=== PATIENT | male | born 1950 | race Caucasian/White ===

== ENCOUNTER 2017-04-19 04:33 | Emergency (ER) | payer MEDICARE, OTHER ==
[2017-04-19 04:44] VITALS: BP 158/75
[2017-04-19] MEDS ORDERED: METHYLPREDNISOLONE SOD SUCC/PF 125 MG/2 ML VIAL IM ONE (05:09)
[2017-04-19] MEDS ORDERED: diphenhydrAMINE HCL 25 MG CAPSULE PO ONE (05:09)
[2017-04-19] MEDS ORDERED: METHYLPREDNISOLONE SOD SUCC/PF 125 MG/2 ML VIAL ONE (05:10)
[2017-04-19] MEDS ORDERED: diphenhydrAMINE HCL 50 MG/ML VIAL ONE (05:10)
[2017-04-19] MEDS ORDERED: diphenhydrAMINE HCL 25 MG CAPSULE ONE ×2 (05:12→05:13)
--- NOTE | 2017-04-19 05:15 | ERNOTE ---
Integumentary HPI - Narrative Date of Service: 04/19/17 - General Time Seen by Provider: 04/19/17 05:04 - Immun/Allergies/Home Medications Immunizations: IMMUNIZATION HX Immunizations Up to Date Yes History of Influenza Vaccine Yes Hx Pneumococcal Vaccination Yes Allergies/Adverse Reactions: Allergies Allergy/AdvReac Type Severity Reaction Status Date / Time aspirin Allergy Verified 04/19/17 04:38 Home Medications: HOME MEDICATIONS Atenolol [Tenormin] 12.5 mg PO DAILY 04/19/17 [Last Taken Unknown] Lisinopril [Zestril] 5 mg PO DAILY 04/19/17 [Last Taken Unknown] Simvastatin 10 mg PO DAILY 04/19/17 [Last Taken Unknown] glipiZIDE [Glipizide] 10 mg PO DAILY 04/19/17 [Last Taken Unknown] metFORMIN HCL [Glucophage] 1,000 mg PO BIDWM 04/19/17 [Last Taken Unknown] - History of Present Illness Narrative: This is a 66-year-old gentleman who presents to the emergency department at 5 AM complaining of an itchy rash on the inside of both calves. The rash has been present for 7 days. It is been keeping him up at night. He has been using calamine lotion without much success. Last night he finally became very frustrated and decided to come the emergency Department. The patient states that it started shortly after he was golfing. He thinks he walked through some poison deniz. Says the rash started out as small areas and have gradually become larger. He denies rash anywhere else on his body. He denies previous history of rash. He has no other complaints. Review of Systems - Review of Systems Constitutional: Present: no symptoms reported EYE: Present: no symptoms reported ENT: Present: no symptoms reported Respiratory: Present: no symptoms reported Cardiology: Present: no symptoms reported Gastrointestinal/Abdominal: Present: no symptoms reported Genitourinary: Present: no symptoms reported Musculoskeletal: Present: no symptoms reported Skin: Present: See HPI, rash Neurological: Present: no symptoms reported Endocrine: Present: no symptoms reported Hematologic/Lymphatic: Present: no symptoms reported Psych: Present: no symptoms reported All Other Systems: All systems neg except as marked - Patient's Past Medical History Patient History - Medical: Diabetes Type 2 Patient History - Cardiac/Respiratory: Asthma Patient History - Cancer: No Hx of Cancer Patient History - Surgical Procedures: Other Patient History - Other: None - Social History Living Situations: assisted living Psych History: No pertinent hx Smoking Status: Never smoker Alcohol Use: none Drug Use: none - Immunizations Immunizations Up to Date: Yes Hx Pneumococcal Vaccination: Yes History of Influenza Vaccine: Yes Physical Exam - Physical Exam General Appearance: Present: wd/wn, alert, no apparent distress Head Exam: Present: normal inspection, no evidence of injury Ears, Nose, Throat: Present: normal ENT inspection Respiratory: Present: no respiratory distress, lungs clear Cardiovascular/Chest: Present: regular rate, rhythm Extremity Exam: Present: other - patient has a rash as described below Neurological Exam: Present: alert, normal mood/affect, no motor/sensory deficits Skin Exam: Present: other - patient has an erythematous rash approximately 6 cm x 9 cm on the anterior medial aspect of bilateral calves. It is non-blanchable and slightly elevated. No definite vesicles. Scattered satellite lesions. This does not have the typical appearance of yeast or fungal infection. Nor does it have the typical appearance of poison deniz or poison oak. ED Progress - Vital Signs Patient's Vital Signs:: I have reviewed the patient's vital signs. Vital Signs: Vital Signs 04/19/17 04:40 Temperature 36.7 C Pulse Rate 65 Respiratory 18 Rate Blood Pressure 158/75 O2 Sat by Pulse 95 Oximetry - Progress/Reassessment Chief Complaint: Rash Departure Clinical Impression: Rash - Departure Disposition: Home self-care Condition: Stable Additional Instructions: As we discussed, I am not certain of the cause of her rash. Certainly this could be poison deniz or another type of allergic type skin reaction. Nevertheless I do not see any signs that this is a potentially serious or life- threatening etiology of rash. Therefore arriving my treatment primarily of symptoms. Take the prescribed Benadryl. This will help with itching but may make you drowsy. 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 I've given her single dose of steroids. Most of the people experience significant relief within 12-18 hours of taking the steroids. I want [facility] doctor and set up a follow-up appointment. In light rash is completely gone you need to have somebody who has more experience with nonemergency type rashes take a look at this. Certainly if you develop any new concerning symptoms she should return to the ER.
== END 2017-04-19 05:15 | disposition home or self-care (01) ==
LOC: ER 04:33
DX: L53.9 Erythematous condition, unspecified (principal); R21 Rash and other nonspecific skin eruption; E11.9 Type 2 diabetes mellitus without complications